=== PATIENT | male | born 1930 | race Caucasian/White ===

== ENCOUNTER → 2017-02-24 | Outpatient (CLI) | payer OTHER, BC ==
[2014-10-17 10:51] VITALS: BP 163/76
--- NOTE | 2017-02-24 16:09 | MRI ---
MRI OF THE LUMBAR SPINE WITHOUT IV CONTRAST CLINICAL INDICATION: Back pain TECHNIQUE: Pre-contrast sagittal T1-, T2-, and T2-w fat-saturated images, and axial T1- and T2-w imag es of the lumbar spine. COMPARISON: None. FINDINGS: There is sacralization of the L5 vertebra. The lumbar spine demonstrates normal alignment. Vertebral bodies are normal in height. There is a nor mal marrow signal pattern. Severe multilevel degenerative disc disease. The conus medullaris terminat es at a normal level and the nerve roots of the cauda equina appear normal. The included paraspinal s oft tissues and retroperitoneal structures are grossly normal. Evaluation of the individual levels demonstrates: L1-2: Circumferential disc bulge and facet arthropathy with ligamentum flavum hypertrophy resulting i n moderate to severe central stenosis and severe bilateral neural foraminal stenosis. L2-3: Circumferential disc bulge with moderate central stenosis and bilateral moderate neural foramin al stenosis. Ligamentum flavum hypertrophy and facet arthropathy also present. L3-4: Circumferential disc bulge, ligamentum flavum hypertrophy, facet arthropathy resulting in sever e central stenosis. Bilateral facet arthritis. L4-5: Circumferential disc bulge with ligamentum flavum hypertrophy and facet arthropathy resulting i n severe central stenosis and severe bilateral neural foraminal stenosis. L5-S1: Normal IMPRESSION: 1. Severe multilevel degenerative disc disease with up to severe stenosis at multiple levels as above . Reported By:
== END ==
LOC: RAD 12:33
PROVIDERS: ATTEND Psychiatry & Neurology Neurology
DX: M47.896 Other spondylosis, lumbar region (principal); M51.36 Other intervertebral disc degeneration, lumbar region
CPT/HCPCS: 72148

== ENCOUNTER → 2017-03-06 | Outpatient (CLI) | payer OTHER, BC ==
[2014-10-17 10:51] VITALS: BP 163/76
[2017-03-06 09:12] LABS: FREE T4 (FREE THYROXINE) 0.91 ng/dL (0.76-1.46); T4 (THYROXINE) 5.2 ug/dL (4.7-13.3); TSH (3RD GENERATION) 6.436 uIU/mL (0.358-3.74)
== END ==
LOC: LAB 07:45
PROVIDERS: ATTEND Psychiatry & Neurology Neurology
DX: G60.9 Hereditary and idiopathic neuropathy, unspecified (principal)
CPT/HCPCS: 36415; 82607; 82746; 84436; 84439; 84443; 86592

== ENCOUNTER → 2017-03-09 | Outpatient (CLI) | payer OTHER, BC ==
[2014-10-17 10:51] VITALS: BP 163/76
== END ==
LOC: RT 09:13
PROVIDERS: ATTEND Psychiatry & Neurology Neurology
DX: G60.8 Other hereditary and idiopathic neuropathies (principal)
CPT/HCPCS: 95910

== ENCOUNTER → 2017-06-19 | Outpatient (CLI) | payer OTHER, BC ==
[2014-10-17 10:51] VITALS: BP 163/76
--- NOTE | 2017-06-19 11:02 | MRI ---
STUDY: MRI OF THE BRAIN WITHOUT GADOLINIUM HISTORY: Dizziness and giddiness. Unspecified dementia without behavioral disturbance. Technique: Multiplanar multi-sequence MRI of the brain was obtained utilizing standard departmental p rotocol. Sagittal and axial T1, axial T2, FLAIR, diffusion (DWI/ADC), GRE, and coronal T2 images thro h the brain were performed. Comparison: None. Findings: The sulci, cisterns and ventricles are prominent consistent with diffuse volume loss. There are confl uent and scattered foci of T2 prolongation in the periventricular and subcortical white matter of bot h hemispheres. This is a nonspecific finding which likely represents microangiopathic change in a pat ient of this age. There is no evidence of acute territorial infarction, hemorrhage, mass, mass effect, or midline shift . There are no abnormal intra-axial or extra-axial fluid collections. The major intracranial vascular flow voids appear intact. The right vertebral artery appears dominant. IMPRESSION: 1. No evidence of acute intracranial abnormality. 2. Nonspecific white matter change and volume loss. Reported By:
--- NOTE | 2017-06-19 11:06 | MRI ---
STUDY: MRA OF THE BRAIN HISTORY: Dizziness and giddiness. Comparison: None. Technique: 3D [id number] imaging of the intracranial circulation was performed. Findings: 3D [id number] MRA examination shows normal flow related enhancement in the major intracranial art eries. There is no evidence of hemodynamically significant stenosis or aneurysm. Posterior communicat ing arteries are not identified. The right vertebral artery is dominant. IMPRESSION: 1. Normal MRA of the brain. Reported By:
== END ==
LOC: RAD 09:01
PROVIDERS: ATTEND Internal Medicine
DX: R42 Dizziness and giddiness (principal); F03.90 Unspecified dementia, unspecified severity, without behavioral disturbance, psychotic disturbance, mood disturbance, and anxiety; H53.8 Other visual disturbances
CPT/HCPCS: 70544; 70551